=== PATIENT | male | born 1990 | race Caucasian/White ===

== ENCOUNTER → 2023-03-12 09:40 | Outpatient (CLI) | payer BC, SELFPAY ==
--- NOTE | 2023-03-12 | DI.RAD.S_ITS ---
PROCEDURE: XR FOOT LT MIN 3V INDICATIONS: Unspecified injury of left foot, initial encounter TECHNIQUE: 3 views of the foot were acquired. COMPARISON: None. FINDINGS: Bones: Suspected nondisplaced fracture of the 5th digit proximal phalanx. No dislocations. No suspicious bony lesions. Soft tissues: No tibiotalar joint effusion. Achilles tendon appears normal. IMPRESSION: Suspected nondisplaced fracture of the 5th digit proximal phalanx. Dictated by: Silver Zapien M.D. on 03/12/2023 at 10:40 Approved by: Silver Zapien M.D. on 03/12/2023 at 11:05
== END ==
PROVIDERS: PCP Registered Nurse; Referring Provider Registered Nurse; Visit Provider Registered Nurse
DX: S99.922A Unspecified injury of left foot, initial encounter (principal); M79.675 Pain in left toe(s); R22.31 Localized swelling, mass and lump, right upper limb; X58.XXXA Exposure to other specified factors, initial encounter
CPT/HCPCS: 73630; 76882

== ENCOUNTER → 2023-03-12 11:11 | Outpatient (CLI) | payer BC, SELFPAY ==
--- NOTE | 2023-03-12 | DI.US.S_ITS ---
PROCEDURE: US EXTREMELY NONVASC UPPER RT INDICATIONS: MASS OF RIGHT UPPER EXTREMITY TECHNIQUE: Real-time scanning was performed of the right upper arm, with image documentation. Color Doppler was also utilized. COMPARISON: None. FINDINGS: At the site of clinical concern, there is an ovoid nonvascular focus seen within the subcutaneous fat measuring 1.5 x 0.7 x 1.2 cm. This is minimally hyperechoic compared to the surrounding normal subcutaneous fat. IMPRESSION: Likely lipoma seen at the area of clinical concern. Dictated by: Aldo Loera M.D. on 03/12/2023 at 12:45 Approved by: Aldo Loera M.D. on 03/12/2023 at 12:50
== END ==
PROVIDERS: PCP Registered Nurse; Referring Provider Registered Nurse; Visit Provider Registered Nurse
DX: R22.31 Localized swelling, mass and lump, right upper limb (principal)
CPT/HCPCS: 76882

== ENCOUNTER → 2023-11-18 06:42 | Outpatient (CLI) | payer BC, SELFPAY ==
--- NOTE | 2023-11-18 06:43 | DI.US.S_ITS ---
PROCEDURE: US SCROTUM INDICATIONS: LEFT TESTICULAR PAIN TECHNIQUE: Real-time scanning was performed of the scrotum and testicles, with image documentation. Color and pulse Doppler interrogation was performed of both testicles. COMPARISON: None. FINDINGS: Right: Testicle is normal in size at 4.2 x 2.2 x 3.8 cm, and homogenous in echotexture. Epididymis is normal in overall size and morphology. No hydrocele or varicoceles. Overlying scrotal skin is normal in thickness. Left: Testicle is normal in size at 4.4 x 2.1 x 3.1 cm, and homogeneous in echotexture. Epididymal head anechoic simple cyst measuring 2 mm. Epididymis is otherwise normal in overall size and morphology. No hydrocele or varicoceles. Overlying scrotal skin is normal in thickness. Doppler: Color and pulse Doppler demonstrate normal and symmetric arterial flow in both testicles. IMPRESSION: 1. Benign anechoic simple cyst in the left epididymal head measuring 2 mm. 2. Otherwise, normal testicular ultrasound. Dictated by: Savannah De Jesus M.D. on 11/18/2023 at 9:56 Approved by: Savannah De Jesus M.D. on 11/18/2023 at 10:02
== END ==
LOC: US 06:42
PROVIDERS: PCP Registered Nurse; Referring Provider Specialist; Visit Provider Specialist
DX: N50.3 Cyst of epididymis (principal); N50.812 Left testicular pain
CPT/HCPCS: 76870; 93975

== ENCOUNTER → 2024-05-26 08:07 | Outpatient (CLI) | payer BC, SELFPAY ==
--- NOTE | 2024-05-26 | DI.RAD.S_ITS ---
PROCEDURE: XR FINGER RT MIN 2V INDICATIONS: third digit injury, pain TECHNIQUE: AP hand, 2 views of the 3rd finger(s) acquired. COMPARISON: None. FINDINGS: Bones: No fractures or dislocations. No suspicious bony lesions. Soft tissues: No suspicious soft tissue calcifications. IMPRESSION: No acute bony abnormality. Approved by: Kolby Damian M.D. on 05/26/2024 at 12:48
== END ==
PROVIDERS: PCP Registered Nurse; Referring Provider Registered Nurse; Visit Provider Registered Nurse
DX: M79.644 Pain in right finger(s) (principal)
CPT/HCPCS: 73140